=== PATIENT | male | born 1995 | race Caucasian/White ===

== ENCOUNTER 2023-02-16 00:11 | Emergency (ER) | payer SELFPAY ==
[2023-02-16 00:17] VITALS: BP 108/69; PULSE 69; RESP 16; TEMP 36.7; O2SAT 97; BMI 19.5
[2023-02-16 02:25] VITALS: BP 108/65; PULSE 62; RESP 16; TEMP 36.9; O2SAT 98
[2023-02-16] MEDS: Lidocaine HCl 1 % MPF 5 ML VIAL INFILTRATI (03:02)
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
[2023-02-16 04:25] VITALS: BP 110/60; PULSE 52; RESP 16; TEMP 36.2; O2SAT 98
== END 2023-02-16 04:35 | disposition home or self-care (01) ==
PROVIDERS: Emergency Provider Internal Medicine
DX: S01.81XA Laceration without foreign body of other part of head, initial encounter (principal); S01.112A Laceration without foreign body of left eyelid and periocular area, initial encounter; S41.012A Laceration without foreign body of left shoulder, initial encounter; X99.0XXA Assault by sharp glass, initial encounter; F12.90 Cannabis use, unspecified, uncomplicated; Y93.89 Activity, other specified; Y92.511 Restaurant or cafe as the place of occurrence of the external cause; Y99.9 Unspecified external cause status
CPT/HCPCS: 12013; 99284